=== PATIENT | female | born 1945 | race Caucasian/White ===

== ENCOUNTER → 2017-03-04 | Outpatient (CLI) | payer MEDICARE, OTHER ==
[~2017-03-04] VITALS: Ht 165.1 cm; Wt 68.0 kg
[~2017-03-04] MED LIST: AMLO5TAB2 PO; ASPI81TA55 PO; BIOT5TAB PO; CALC1TAB4 PO; CITA40TA11 PO; FOLI1TAB6 PO; LISI1TAB8 PO; MAGN250T13 PO; ZOLE5INF IV; ZOLEDRONATE 5 MG/100 ML (RECLAST) BTL IV ONE
[2017-03-04 13:35] VITALS: BP 107/64
== END ==
LOC: SDC 12:37
PROVIDERS: ATTEND Nurse Practitioner Family
DX: M81.0 Age-related osteoporosis without current pathological fracture (principal)
CPT/HCPCS: 96365

== ENCOUNTER 2018-05-02 12:48 | Outpatient (CLI) | payer MEDICARE, OTHER ==
[~2018-05-02] VITALS: Ht 165.1 cm; Wt 68.0 kg
[~2018-05-02 12:48] MED LIST changes: -AMLO5TAB2 PO; +AMLO5TAB9 PO; -ZOLEDRONATE 5 MG/100 ML (RECLAST) BTL IV ONE
[2018-05-02 13:05] VITALS: BP 122/74
[2018-05-02] MEDS ORDERED: ZOLEDRONATE (NON-FORMULARY) 100 ML IV ONE (14:00)
== END 2018-05-02 14:33 | disposition home or self-care (01) ==
LOC: SDC 12:48
PROVIDERS: ATTEND Nurse Practitioner Family
DX: M81.0 Age-related osteoporosis without current pathological fracture (principal)
CPT/HCPCS: 96365